=== PATIENT | male | born 1995 | race Caucasian/White ===

== ENCOUNTER 2020-03-28 02:04 | Emergency (ER) | payer OTHER ==
[~2020-03-28] VITALS: Ht 172.7 cm; Wt 85.9 kg
[2020-03-28 02:04] VITALS: BP 122/69
--- NOTE | 2020-04-25 15:23 | REP ---
LEFT WRIST SERIES CLINICAL: Trauma. TECHNIQUE: AP, lateral, and bilateral oblique views of the left wrist. FINDINGS: Osseous structures are intact. No acute fracture or dislocation. Joint spaces are normal. Surrounding soft tissues are unremarkable. IMPRESSION: Normal left wrist radiographs. No acute fracture or dislocation. MTDD
== END 2020-03-28 05:47 | disposition home or self-care (01) ==
LOC: M ED 02:04
DX: S69.92XA Unspecified injury of left wrist, hand and finger(s), initial encounter (principal); W22.8XXA Striking against or struck by other objects, initial encounter; Y99.1 Military activity